=== PATIENT | male | born 1990 | race Caucasian/White ===

== ENCOUNTER 2016-04-28 09:59 | Emergency (ER) | payer SELFPAY ==
[~2016-04-28] VITALS: Ht 180.3 cm; Wt 76.4 kg
[~2016-04-28 09:59] MED LIST: CITALOPRAM HBR40 M1 PO; CLONAZEPAM0.5 MG PO; INDOCIN25 MG PO; NOHOMEMEDS; PREDNISONE10 MG PO; ULTRACET1 TABLET PO; ZITHROMAX250 MG PO
[2016-04-28] MEDS ORDERED: MEDROL DOSEPAK4 MG PO (11:22)
[2016-04-28 11:34] VITALS: BP 130/78
== END 2016-04-28 11:30 | disposition home or self-care (01) ==
LOC: EME 09:59
DX: L23.7 Allergic contact dermatitis due to plants, except food (principal); Z87.891 Personal history of nicotine dependence
CPT/HCPCS: 99281; 99284; J7512